=== PATIENT | female | born 1985 | race Caucasian/White ===

== ENCOUNTER → 2020-07-17 | Emergency (ER) | payer OTHER ==
[~2020-07-17] VITALS: Ht 177.8 cm; Wt 63.5 kg
[2020-07-17 14:57] LABS: ABSOLUTE EOSINOPHILS 0.1 thou/uL (0.0-0.7); ABSOLUTE LYMPHOCYTES 1.5 thou/uL (0.8-5.3); ABSOLUTE MONOCYTES 0.8 thou/uL (0.0-1.2); BASOPHILS 0.2 %; CALCIUM 8.9 mg/dL (8.5-10.1); CREATININE 0.7 mg/dL (0.6-1.3); EOSINOPHILS 1.1 %; HEMOGLOBIN 13.7 gm/dL (12.0-15.0); LYMPHOCYTES 20.5 %; MCH 25.8 pg (26.0-34.0); MCHC 32.6 g/dL (28.0-37.0); MCV 78.9 fL (80.0-100.0); MONOCYTES 10.7 %; MPV 7.5 fl. (7.2-11.1); NUCLEATED RBCS 0 /100WBC; PLATELET COUNT* 305 thou/uL (150-400); POLYS 67.5 %; RBC 5.32 mil/uL (4.20-5.00); RDW-CV 18.9 % (10.5-14.5); WBC 7.4 thou/uL (4.0-11.0)
[2020-07-17 15:00] LABS: APTT 23.8 Seconds (25.0-31.3); INR 1.1; PROTIME 11.5 Seconds (9.20-11.50)
[2020-07-17 15:10] LABS: ALBUMIN 4.1 g/dL (3.4-5.0); CK-MB MASS 2.4 ng/mL (<0.5-3.6); MAGNESIUM 1.5 mg/dL (1.8-2.4); TOTAL PROTEIN 7.7 g/dL (6.4-8.2)
[2020-07-17 15:18] LABS: POTASSIUM 2.8 mmol/L (3.5-5.1)
[2020-07-17 15:53] VITALS: BP 145/80
--- NOTE | 2020-07-18 09:09 | EKG ---
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 : 1985 Requested By: Gunnar Pascal Order Number: [id number] MD: Mikael Juan Measurements Intervals [place] Rate: 109 P: 70 HI: 125 QRS: 39 QRSD: 81 T: 49 QT: 338 QTc: 456 Interpretive Statements Sinus tachycardia Right atrial enlargement Consider left ventricular hypertrophy No previous ECG available for comparison Electronically Signed On 07-18-2020 9:08:56 [employer] by Mikael Juan [email or web address] <ELECTRONICALLY SIGNED> By: Mikael Juan MD, [facility] 07/18/20 0908 1431 1431 Mikael Juna MD, FACC /EPI
== END ==
LOC: M.ERS 14:27
PROVIDERS: Family Medicine
DX: R07.89 Other chest pain (principal); E87.6 Hypokalemia; R94.5 Abnormal results of liver function studies